=== PATIENT | female | born 1965 | race Caucasian/White ===

== ENCOUNTER 2017-08-17 13:25 | Emergency (ER) | payer MEDICAID, OTHER ==
[2017-08-17] MEDS ORDERED: Sodium Chloride 0.9% 1,000 ML IV STA (13:44)
[2017-08-17] MEDS ORDERED: Iohexol 240 (50 ml) PO ONE (13:45)
--- NOTE | 2017-08-17 14:10 | ED PDOC ---
HPI: Abdomen Time Seen by Provider: 08/17/17 13:37 Chief Complaint (Nursing): Abdominal Pain Chief Complaint (Provider): Abdominal Pain History Per: Patient History/Exam Limitations: no limitations Onset/Duration Of Symptoms: Days (x 1) Current Symptoms Are (Timing): Still Present Additional Complaint(s): Aster is a 51 y/o female with a history of hypertension who presents to the ED complaining of right sided abdominal pain with associated nausea, vomiting, and diarrhea that started last evening. Patient has had several nonbloody episodes of both vomiting and diarrhea. She describes the pain as sharp with no radiation. Now she also has associated dizziness. Patient denies fever, chest pain, shortness of breath, or prior history of similar pain. PMD: None Past Medical History Reviewed: Historical Data, Nursing Documentation, Vital Signs Vital Signs: Last Vital Signs Temp 98.6 F 08/17/17 19:34 Pulse 79 08/17/17 19:34 Resp 16 08/17/17 19:34 BP 113/70 08/17/17 19:34 Pulse Ox 96 08/17/17 19:34 - Medical History PMH: Asthma, HTN - Surgical History Surgical History: Other surgeries: tummy tuck, breast augmentation - Family History Family History: States: Unknown Family Hx - Immunization History Hx Tetanus Toxoid Vaccination: No Hx Influenza Vaccination: No Hx Pneumococcal Vaccination: No - Home Medications Home Medications: Ambulatory Orders Medication Instructions Recorded Losartan/Hydrochlorothiazide 1 tab PO DAILY 01/08/16 [Hyzaar 100-25 Tablet] Metoprolol Succinate [Toprol XL] 50 mg PO DAILY 01/08/16 Albuterol HFA [Ventolin HFA 90 2 puff IH [id number] PRN 06/03/17 mcg/actuation (8 g)] Famotidine [Pepcid] 20 mg PO DAILY #20 tab 06/03/17 Zolpidem [Ambien] 10 mg PO HS 06/27/17 Ibuprofen [Motrin Tab] 600 mg PO Q6 PRN #15 tab 08/17/17 Ranitidine HCl [Zantac] 150 mg PO BID #20 tablet 08/17/17 Ciprofloxacin HCl [Cipro] 500 mg PO BID 7 Days tab 08/20/17 Dicyclomine [Dicyclomine HCl] 10 mg PO DAILY PRN 5 Days cap 08/20/17 - Allergies Allergies/Adverse Reactions: Allergies Allergy/AdvReac Type Severity Reaction Status Date / Time latex AdvReac SWELLING Verified 08/17/17 13:30 Review of Systems ROS Statement: Except As Marked, All Systems Reviewed And Found Negative Constitutional: Negative for: Fever Cardiovascular: Negative for: Chest Pain Respiratory: Negative for: Shortness of Breath Gastrointestinal: Positive for: Nausea, Vomiting, Abdominal Pain (right sided), Diarrhea Neurological: Positive for: Dizziness Physical Exam - Reviewed Nursing Documentation Reviewed: Yes Vital Signs Reviewed: Yes - Physical Exam Appears: Positive for: Well, Non-toxic, No Acute Distress Skin: Positive for: Normal Color, Warm, Dry Eye Exam: Positive for: Normal appearance, EOMI, PERRL. Negative for: Scleral icterus Cardiovascular/Chest: Positive for: Regular Rate, Rhythm. Negative for: Murmur Respiratory: Positive for: Normal Breath Sounds. Negative for: Respiratory Distress Gastrointestinal/Abdominal: Positive for: Soft, Tenderness (right sided upper and lower). Negative for: Guarding, Rebound Extremity: Positive for: Normal ROM Neurologic/Psych: Positive for: Alert, Oriented. Negative for: Motor/Sensory Deficits - Laboratory Results Result Diagrams: 08/17/17 14:15 08/17/17 14:15 - ECG O2 Sat by Pulse Oximetry: 95 (RA) Pulse Ox Interpretation: Normal Medical Decision Making Medical Decision Making: Time: 13:43 Initial Impression: Right-sided abdominal pain Initial Plan: --US Abdomen --Blood Work --Toradol and Zofran for symptoms --If US negative, CT will be ordered Time: 16:26 US ABDOMEN FINDINGS: LIVER: Measures 18.1 cm. Diffuse increased echogenicity of the liver parenchyma. No mass. No intrahepatic bile duct dilatation. GALLBLADDER: Unremarkable. No gallstones. COMMON BILE DUCT: Measures 4 mm. No stones. No dilatation. PANCREAS: Not visualized RIGHT KIDNEY: Measures 11.6 x 5.5 x 4 point sickcm. Normal echogenicity. No calculus, mass, or hydronephrosis. LEFT KIDNEY: Measures 11.2 x 5.9 x 6.6cm. Normal echogenicity. No calculus, mass, or hydronephrosis. SPLEEN: Normal in size at 10.9 cm a. Normal contour. No mass. AORTA: Limited due to bowel gas. IVC: Limited due to bowel gas OTHER FINDINGS: None. IMPRESSION: Limited exam due to obscuring bowel gas as above. Mild hepatomegaly. Findings compatible with hepatic steatosis. No gallbladder pathology noted. Nonvisualized pancreas. Not visualized IVC and aorta. Labs and CT report reviewed w patient. Followup GI for eval of LFTs and workup Scribe Attestation: Documented by Darshan Nicholson, acting as a scribe for Dr. Nasir Grajeda DO. Provider Scribe Attestation: All medical record entries made by the Scribe were at my direction and personally dictated by me. I have reviewed the chart and agree that the record accurately reflects my personal performance of the history, physical exam, medical decision making, and the department course for this patient. I have also personally directed, reviewed, and agree with the discharge instructions and disposition. Disposition - Clinical Impression Clinical Impression: Abdominal pain, Abnormal liver function test - Patient ED Disposition Is Patient to be Admitted: No Counseled Patient/Family Regarding: Studies Performed, Diagnosis, Need For Followup - Disposition Referrals: Roberta Peacock MD [Medical Doctor] - Disposition: Routine/Home Disposition Time: 18:30 Condition: STABLE Additional Instructions: See utility worker production for evaluation of your liver enzymes. Hepatitis testing sent, will return in approx 2-3 days. Return to ER for any worse or new symptoms. Take medications as directed. Prescriptions: Ibuprofen [Motrin Tab] 600 mg PO Q6 PRN #15 tab PRN Reason: Pain, Moderate (4-7) Ranitidine HCl [Zantac] 150 mg PO BID #20 tablet Instructions: Acute Abdomen (Belly Pain) Forms: [employer] (Mongolian) Print Language: SLOVAK
[2017-08-17 14:22] LABS: BASO % 0.3 % (0.0-2.0); EOS # 0.1 K/uL (0.0-0.7); EOS % 1.2 % (0.0-4.0); LYMPH # 0.8 K/uL (1.0-4.3); LYMPH % 11.2 % (20.0-40.0); MEAN CELL VOLUME 82.5 fl (81.0-99.0); MEAN CORPUSCULAR HEMOGLOBIN 28.1 pg (27.0-31.0); MEAN CORPUSCULAR HGB CONC 34.1 g/dL (33.0-37.0); MEAN PLATELET VOLUME 8.8 fl (7.2-11.7); MONO # 0.3 K/uL (0.0-0.8); MONO % 3.3 % (0.0-10.0); NEUT # 6.3 K/uL (1.8-7.0); NRBC % 0.1 % (0.0-0.0); RBC 4.61 Mil/uL (3.80-5.20); RED CELL DISTRIBUTION WIDTH 12.3 % (11.5-14.5); WHITE BLOOD COUNT 7.5 K/uL (4.8-10.8)
[2017-08-17 14:29] LABS: PARTIAL THROMBOPLASTIN TIME 28.2 Seconds (25.6-37.1); PROTHROMBIN TIME 11.4 Seconds (9.8-13.1)
[2017-08-17] MEDS ORDERED: Iohexol 240 (50 ml) ONE (14:37)
[2017-08-17 16:20] LABS: ALBUMIN 4.1 g/dL (3.5-5.0); ALT/SGPT 179 U/L (9-52); AST/SGOT 179 U/L (14-36); BLOOD UREA NITROGEN 14 mg/dl (7-17); CALCIUM 9.3 mg/dL (8.4-10.2); GFR AFRICAN-AMERICAN > 60; GFR NON-AFRICAN AMERICAN > 60; LIPASE 50 U/L (23-300)
--- NOTE | 2017-08-17 16:28 | US ---
HISTORY: Right sided abd pain COMPARISON: None. TECHNIQUE: Sonographic evaluation of the abdomen. Patient was given CT contrast prior to the ultrasound exam - examination somewhat limited by this and bowel gas. FINDINGS: LIVER: Measures 18.1 cm. Diffuse increased echogenicity of the liver parenchyma. No mass. No intrahepatic bile duct dilatation. GALLBLADDER: Unremarkable. No gallstones. COMMON BILE DUCT: Measures 4 mm. No stones. No dilatation. PANCREAS: Not visualized RIGHT KIDNEY: Measures 11.6 x 5.5 x 4 point sickcm. Normal echogenicity. No calculus, mass, or hydronephrosis. LEFT KIDNEY: Measures 11.2 x 5.9 x 6.6cm. Normal echogenicity. No calculus, mass, or hydronephrosis. SPLEEN: Normal in size at 10.9 cm a. Normal contour. No mass. AORTA: Limited due to bowel gas. IVC: Limited due to bowel gas OTHER FINDINGS: None. IMPRESSION: Limited exam due to obscuring bowel gas as above. Mild hepatomegaly. Findings compatible with hepatic steatosis. No gallbladder pathology noted. Nonvisualized pancreas. Not visualized IVC and aorta.
[2017-08-17] MEDS ORDERED: Iohexol 300 100 ML IJ ONE (16:47)
[2017-08-17] MEDS ORDERED: Sodium Chloride 0.9% 100 ML ONE (16:47)
[2017-08-17] MEDS ORDERED: Morphine 4 MG/ML VIAL ONE (17:39)
--- NOTE | 2017-08-17 18:06 | CT ---
PROCEDURE: CT Abdomen and Pelvis with contrast HISTORY: R sided abd pain vomiting COMPARISON: None. TECHNIQUE: Contrast dose: 90 mL Omnipaque 300 Radiation dose: Total exam DLP = 897.28 mGy-cm. This CT exam was performed using one or more of the following dose reduction techniques: Automated exposure control, adjustment of the mA and/or kV according to patient size, and/or use of iterative reconstruction technique. FINDINGS: LOWER THORAX: Unremarkable. LIVER: Diffusely diminished attenuation consistent with fatty infiltration. There is geometric area of relative increased attenuation in the medial left hepatic lobe abutting the fissure for the ligamentum but no some, consistent with focal fatty sparing. There is also mild focal fatty sparing seen about the gallbladder fossa. Smooth contour. No other mass. No biliary ductal dilatation. Mild hepatomegaly. The liver measures approximately 20 cm craniocaudal. GALLBLADDER AND BILE DUCTS: Unremarkable. PANCREAS: Unremarkable. No gross lesion or ductal dilatation. SPLEEN: Minimal splenomegaly. The spleen measures 13.1 cm in greatest dimension. No mass peer ADRENALS: Unremarkable. No mass. KIDNEYS AND URETERS: Unremarkable. No hydronephrosis. No solid mass. VASCULATURE: Unremarkable. No aortic aneurysm. BOWEL: Unremarkable. No obstruction. No gross mural thickening. APPENDIX: Normal appendix. PERITONEUM: Unremarkable. No free fluid. No free air. LYMPH NODES: Unremarkable. No enlarged lymph nodes. BLADDER: Unremarkable. REPRODUCTIVE: Unremarkable uterus. Two right-sided cervical nabothian cysts. Additional minor findings as above. 1.9 cm left ovarian cyst. BONES: No acute fracture. OTHER FINDINGS: None. IMPRESSION: No acute abnormality. Mild hepatic splenomegaly. Fatty infiltration of the liver. Focal fatty sparing.
--- NOTE | 2017-08-17 19:19 | CARD ---
APPROVED REPORT EKG Measurement Heart [id number] <Conclusion> Normal sinus rhythm Nonspecific T wave abnormality Abnormal ECG
[2017-08-18 11:28] VITALS: BP 113/70; PULSE 79
[2017-08-18 11:38] VITALS: RESP 16; TEMP 98.6
[2017-08-18 12:40] LABS: HEPATITIS B SURFACE AG Negative (NEGATIVE)
[2017-08-18 12:46] LABS: HEPATITIS A IGM NEGATIVE (NEGATIVE); HEPATITIS B CORE AB NEGATIVE (NEGATIVE)
[2017-08-18 13:44] LABS: HEPATITIS C ANTIBODY NEGATIVE (NEGATIVE)
[2017-08-24 16:35] VITALS: O2SAT 95
== END 2017-08-17 19:40 | disposition home or self-care (01) ==
LOC: H.ER 13:25
DX: R79.89 Other specified abnormal findings of blood chemistry (principal); R10.9 Unspecified abdominal pain; I10 Essential (primary) hypertension; J45.909 Unspecified asthma, uncomplicated
CPT/HCPCS: 74177; 76700; 80053; 80074; 81025; 83690; 85025; 85610; 85730; 93005; 96374; 99284; J1885; J2270; J7040; Q9966; Q9967

== ENCOUNTER 2017-08-20 10:18 | Emergency (ER) | payer MEDICAID ==
[2017-08-20 10:25] VITALS: O2SAT 98
[2017-08-20] MEDS ORDERED: Sodium Chloride 0.9% 1,000 ML IV STA (10:50)
--- NOTE | 2017-08-20 11:22 | ED PDOC ---
HPI: Abdomen Time Seen by Provider: 08/20/17 10:39 Chief Complaint (Nursing): Abdominal Pain Chief Complaint (Provider): Abdominal Pain History Per: Patient History/Exam Limitations: no limitations Current Symptoms Are (Timing): Still Present Additional Complaint(s): 51 year old female presents to the emergency department with a complaint of an abdominal pain, vomiting (nonbloody), and diarrhea (nonbloody) since 08/17/2017. Reports that she was seen here on 08/17/2017 with the same symptoms , had unremarkable ultrasound and CAT Scan results, and prescribed Zantac without the relief of symptoms. States she still has diarrhea with two vomiting episodes yesterday. Associated with generalized weakness and lightheadedness. Patient is tolerating liquids. Denies chest pain, shortness of breath, headache , or leg pain. No chest pain, dyspnea, headaches, travel. Had steak and potatoes few hours before initial symptoms started. Past Medical History Reviewed: Historical Data, Nursing Documentation, Vital Signs Vital Signs: Last Vital Signs Temp 98.4 F 08/20/17 10:22 Pulse 92 H 08/20/17 10:22 Resp 18 08/20/17 10:22 BP 135/84 08/20/17 10:22 Pulse Ox 98 08/20/17 13:06 - Medical History PMH: Asthma, HTN - Surgical History Surgical History: - Family History Family History: States: Unknown Family Hx - Social History Current smoker - smoking cessation education provided: No Alcohol: None Drugs: Denies - Immunization History Hx Tetanus Toxoid Vaccination: No Hx Influenza Vaccination: No Hx Pneumococcal Vaccination: No - Home Medications Home Medications: Ambulatory Orders Medication Instructions Recorded Losartan/Hydrochlorothiazide 1 tab PO DAILY 01/08/16 [Hyzaar 100-25 Tablet] Metoprolol Succinate [Toprol XL] 50 mg PO DAILY 01/08/16 Albuterol HFA [Ventolin HFA 90 2 puff IH [id number] PRN 06/03/17 mcg/actuation (8 g)] Famotidine [Pepcid] 20 mg PO DAILY #20 tab 06/03/17 Zolpidem [Ambien] 10 mg PO HS 06/27/17 Ibuprofen [Motrin Tab] 600 mg PO Q6 PRN #15 tab 08/17/17 Ranitidine HCl [Zantac] 150 mg PO BID #20 tablet 08/17/17 Ciprofloxacin HCl [Cipro] 500 mg PO BID 7 Days tab 08/20/17 Dicyclomine [Dicyclomine HCl] 10 mg PO DAILY PRN 5 Days cap 08/20/17 - Allergies Allergies/Adverse Reactions: Allergies Allergy/AdvReac Type Severity Reaction Status Date / Time latex AdvReac SWELLING Verified 08/17/17 13:30 Review of Systems ROS Statement: Except As Marked, All Systems Reviewed And Found Negative Constitutional: Positive for: Weakness (lightheadedness). Negative for: Fever, Chills Cardiovascular: Negative for: Chest Pain Gastrointestinal: Positive for: Vomiting, Abdominal Pain, Diarrhea Musculoskeletal: Negative for: Leg Pain Neurological: Positive for: Weakness, Dizziness (light-headed). Negative for: Headache Physical Exam - Reviewed Nursing Documentation Reviewed: Yes Vital Signs Reviewed: Yes - Physical Exam Appears: Positive for: Non-toxic, No Acute Distress Head Exam: Positive for: NORMAL INSPECTION Skin: Positive for: Normal Color, Warm, Dry Eye Exam: Positive for: Normal appearance, EOMI, PERRL ENT: Positive for: Normal ENT Inspection Neck: Positive for: Normal, Painless ROM, Supple Cardiovascular/Chest: Positive for: Regular Rate, Rhythm. Negative for: Murmur Respiratory: Positive for: Normal Breath Sounds. Negative for: Accessory Muscle Use, Respiratory Distress Gastrointestinal/Abdominal: Positive for: Soft, Tenderness (Diffuse). Negative for: Normal Exam Back: Positive for: Normal Inspection. Negative for: L CVA Tenderness, R CVA Tenderness Extremity: Positive for: Normal ROM. Negative for: Tenderness, Pedal Edema Neurologic/Psych: Positive for: Alert, direct support staff member II-XII, Oriented (x3). Negative for : Motor/Sensory Deficits - Laboratory Results Result Diagrams: 08/20/17 11:05 08/20/17 11:05 Interpretation Of Abn Labs: 3.2 K; ast/alt elevated - ECG O2 Sat by Pulse Oximetry: 98 Pulse Ox Interpretation: Normal (RA) Medical Decision Making Medical Decision Making: Time: 1052 Initial Impression: Abdominal pain and diarrhea Initial Plan: --CMP --Lipase --Urine DIP --Urine Preg --CBC w/ diff --PTT & Prothrombin --Bentyl 10 mg PO --Pepcid 20 mg IVP --Toradol 15 mg IVP --Sodium Chloride 1L IV --Reevaluation --Patient was seen here on 08/17/2017 and had the following work up results: --Negative for HepA, HepB, and HepC. --US ABDOMEN FINDINGS: LIVER: Measures 18.1 cm. Diffuse increased echogenicity of the liver parenchyma. No mass. No intrahepatic bile duct dilatation. GALLBLADDER: Unremarkable. No gallstones. COMMON BILE DUCT: Measures 4 mm. No stones. No dilatation. PANCREAS: Not visualized RIGHT KIDNEY: Measures 11.6 x 5.5 x 4 point sickcm. Normal echogenicity. No calculus, mass, or hydronephrosis. LEFT KIDNEY: Measures 11.2 x 5.9 x 6.6cm. Normal echogenicity. No calculus, mass, or hydronephrosis. SPLEEN: Normal in size at 10.9 cm a. Normal contour. No mass. AORTA: Limited due to bowel gas. IVC: Limited due to bowel gas OTHER FINDINGS: None. IMPRESSION: Limited exam due to obscuring bowel gas as above. Mild hepatomegaly. Findings compatible with hepatic steatosis. No gallbladder pathology noted. Nonvisualized pancreas. Not visualized IVC and aorta. --CT Scan FINDINGS: LOWER THORAX: Unremarkable. LIVER: Diffusely diminished attenuation consistent with fatty infiltration. There is geometric area of relative increased attenuation in the medial left hepatic lobe abutting the fissure for the ligamentum but no some, consistent with focal fatty sparing. There is also mild focal fatty sparing seen about the gallbladder fossa. Smooth contour. No other mass. No biliary ductal dilatation. Mild hepatomegaly. The liver measures approximately 20 cm craniocaudal. GALLBLADDER AND BILE DUCTS: Unremarkable. PANCREAS: Unremarkable. No gross lesion or ductal dilatation. SPLEEN: Minimal splenomegaly. The spleen measures 13.1 cm in greatest dimension. No mass peer ADRENALS: Unremarkable. No mass. KIDNEYS AND URETERS: Unremarkable. No hydronephrosis. No solid mass. VASCULATURE: Unremarkable. No aortic aneurysm. BOWEL: Unremarkable. No obstruction. No gross mural thickening. APPENDIX: Normal appendix. PERITONEUM: Unremarkable. No free fluid. No free air. LYMPH NODES: Unremarkable. No enlarged lymph nodes. BLADDER: Unremarkable. REPRODUCTIVE: Unremarkable uterus. Two right-sided cervical nabothian cysts. Additional minor findings as above. 1.9 cm left ovarian cyst. BONES: No acute fracture. OTHER FINDINGS: None. IMPRESSION: No acute abnormality. Mild hepatic splenomegaly. Fatty infiltration of the liver. Focal fatty sparing. --Patient was diagnosed with abnormal liver function test and abdominal pain. Given Rx for Motrin 600 mg and Zantac 150 mg. Scribe Attestation: Documented by Marilin Brito, acting as a scribe for Ruben Marti MD. Provider Scribe Attestation: All medical record entries made by the Scribe were at my direction and personally dictated by me. I have reviewed the chart and agree that the record accurately reflects my personal performance of the history, physical exam, medical decision making, and the department course for this patient. I have also personally directed, reviewed, and agree with the discharge instructions and disposition. 1331: Stable. AAOx3. Pain free. Tolerated PO. Will rx cipro for possible infection. Pt. aware of elevated liver enzymes similar to last visit. Fu gi and pcp. Disposition - Clinical Impression Clinical Impression: Abdominal pain, Diarrhea, Elevated liver enzymes - Patient ED Disposition Is Patient to be Admitted: No Counseled Patient/Family Regarding: Studies Performed, Diagnosis, Need For Followup, Rx Given - Disposition Referrals: [facility] [Outside] - 08/22/17 Roberta Peacock MD [Medical Doctor] - 08/22/17 Disposition: Routine/Home Disposition Time: 13:33 Condition: STABLE Additional Instructions: You have elevated liver enzymes. Follow up with the volumetric weigher. Return if not better in 3 days. Prescriptions: Ciprofloxacin HCl [Cipro] 500 mg PO BID 7 Days tab Dicyclomine [Dicyclomine HCl] 10 mg PO DAILY PRN 5 Days cap PRN Reason: Diarrhea Instructions: Diarrhea in Adolescents and Adults, Acute Abdomen (Belly Pain) Forms: [employer] (Azeri)
[2017-08-20 11:24] LABS: BASO % 0.4 % (0.0-2.0); EOS # 0.1 K/uL (0.0-0.7); EOS % 2.1 % (0.0-4.0); HEMOGLOBIN 12.5 g/dL (12.0-16.0); LYMPH # 1.5 K/uL (1.0-4.3); LYMPH % 23.3 % (20.0-40.0); MEAN CELL VOLUME 82.9 fl (81.0-99.0); MEAN CORPUSCULAR HEMOGLOBIN 28.1 pg (27.0-31.0); MEAN CORPUSCULAR HGB CONC 33.9 g/dL (33.0-37.0); MEAN PLATELET VOLUME 8.6 fl (7.2-11.7); MONO # 0.4 K/uL (0.0-0.8); MONO % 5.6 % (0.0-10.0); NEUT # 4.3 K/uL (1.8-7.0); NEUT % 68.6 % (50.0-75.0); NRBC % 0.2 % (0.0-0.0); RBC 4.47 Mil/uL (3.80-5.20); RED CELL DISTRIBUTION WIDTH 12.4 % (11.5-14.5); WHITE BLOOD COUNT 6.3 K/uL (4.8-10.8)
[2017-08-20 11:27] LABS: PARTIAL THROMBOPLASTIN TIME 29.5 Seconds (25.6-37.1); PROTHROMBIN TIME 11.5 Seconds (9.8-13.1)
[2017-08-20 11:41] LABS: ALB/GLOB RATIO 1.2 (1.0-2.1); ALBUMIN 4.1 g/dL (3.5-5.0); BLOOD UREA NITROGEN 9 mg/dl (7-17); LIPASE 58 U/L (23-300)
[2017-08-20 13:09] LABS: ALT/SGPT 228 U/L (9-52); AST/SGOT 234 U/L (14-36); CALCIUM 9.3 mg/dL (8.4-10.2); GFR AFRICAN-AMERICAN > 60; GFR NON-AFRICAN AMERICAN > 60
[2017-08-20 13:54] VITALS: BP 132/74; PULSE 84; RESP 17; TEMP 98
== END 2017-08-20 13:55 | disposition home or self-care (01) ==
LOC: H.ER 10:18
DX: R10.9 Unspecified abdominal pain (principal); R19.7 Diarrhea, unspecified; R74.8 Abnormal levels of other serum enzymes; I10 Essential (primary) hypertension; J45.909 Unspecified asthma, uncomplicated
CPT/HCPCS: 80053; 81025; 83690; 85025; 85610; 85730; 96361; 96374; 96375; 99284; J1885; J7040

== ENCOUNTER 2017-10-21 16:55 | Observation (INO) | payer OTHER, MEDICAID ==
[2017-10-21] MEDS ORDERED: Sodium Chloride 0.9% 1,000 ML IV STA (17:46)
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
[2017-10-21 18:44] LABS: BASO # 0.1 K/uL (0.0-0.2); BASO % 0.8 % (0.0-2.0); EOS # 0.2 K/uL (0.0-0.7); EOS % 2.6 % (0.0-4.0); HEMOGLOBIN 13.4 g/dL (12.0-16.0); LYMPH # 2.3 K/uL (1.0-4.3); LYMPH % 26.8 % (20.0-40.0); MEAN CELL VOLUME 83.2 fl (81.0-99.0); MEAN CORPUSCULAR HEMOGLOBIN 28.1 pg (27.0-31.0); MEAN CORPUSCULAR HGB CONC 33.8 g/dL (33.0-37.0); MEAN PLATELET VOLUME 8.3 fl (7.2-11.7); MONO # 0.4 K/uL (0.0-0.8); NEUT # 5.5 K/uL (1.8-7.0); NEUT % 64.8 % (50.0-75.0); NRBC % 0.1 % (0.0-0.0); RBC 4.75 Mil/uL (3.80-5.20); RED CELL DISTRIBUTION WIDTH 12.3 % (11.5-14.5); WHITE BLOOD COUNT 8.5 K/uL (4.8-10.8)
[2017-10-21 18:54] LABS: ALB/GLOB RATIO 1.1 (1.0-2.1); ALBUMIN 4.2 g/dL (3.5-5.0); ALT/SGPT 105 U/L (9-52); AST/SGOT 69 U/L (14-36); BLOOD UREA NITROGEN 15 mg/dl (7-17); CALCIUM 9.5 mg/dL (8.4-10.2); GFR AFRICAN-AMERICAN > 60; GFR NON-AFRICAN AMERICAN > 60
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
[2017-10-21] MEDS ORDERED: Albuterol HFA 90 mcg/actuation (8 g) IH PRN (23:26)
[2017-10-22 00:27] VITALS: RESP 18
[2017-10-22] MEDS: Pneumococcal 23-Valent Vaccine IM ONE ×2 (06:49→06:54)
[2017-10-22] MEDS ORDERED: Metoprolol Succinate 50 mg XL Tab PO SCH (09:00)
[2017-10-22] MEDS ORDERED: RANITIDINE HCL 150 MG PO SCH (09:00)
[2017-10-22] MEDS ORDERED: Pantoprazole 40 mg EC Tab PO SCH (09:00)
[2017-10-22 12:34] VITALS: O2SAT 97
[2017-10-22 16:29] VITALS: BP 141/90; PULSE 73; TEMP 97.9
--- NOTE | 2017-10-22 16:43 | CARD ---
APPROVED REPORT EKG Measurement Heart [id number] <Conclusion> Normal sinus rhythm Poor R wave progression in the chest leads Abnormal ECG
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
== END 2017-10-22 18:30 | disposition home or self-care (01) ==
LOC: H.ER 16:55 → H.ERHOLD 19:12 → H.TEL 22:01
PROVIDERS: ADMIT Family Medicine; ATTEND Family Medicine
DX: M54.2 Cervicalgia (principal); V89.2XXA Person injured in unspecified motor-vehicle accident, traffic, initial encounter; Y92.410 Unspecified street and highway as the place of occurrence of the external cause; I10 Essential (primary) hypertension; J45.909 Unspecified asthma, uncomplicated; R07.9 Chest pain, unspecified; R42 Dizziness and giddiness; Z23 Encounter for immunization
CPT/HCPCS: 36415; 70450; 71046; 72125; 80053; 82550; 84484; 85025; 90732; 93005; 96374; 99285; G0009; G0378; J1885; J7030

== ENCOUNTER 2018-06-12 13:08 | Emergency (ER) | payer MEDICAID, OTHER ==
[2018-06-12 13:21] VITALS: BP 149/95; PULSE 75; RESP 18; TEMP 98.2; O2SAT 96
[2018-06-12] MEDS ORDERED: Oxycodone/Acetaminophen 5/325 mg Tab PO ONE (13:49)
--- NOTE | 2018-06-12 13:52 | ED PDOC ---
HPI: Female Pain Additional History Per: Patient Additional Complaint(s): This is 52 y/o F with PMH of chronic lower back pain with R sciatica comes to the ED c/o dysuria and chronic lower back pain. Patient reports 3 days hx of dysuria, no frq or discharge. Patient reports she has 15 years hx of chronic back pain and she ran out of medication/Percocet 5 days ago. Back pain is 8/10, radiated to right leg, sharp in nature, took tramadol from a friend this morning. Denies any fever, chest pain, SOB, abdominal pain or weakness, numbness/tingling. PMH: chronic lower back pain with R sciatica , HTN , pre-DM, Asthma PSH: Allg: Latex FH: no significant medical hx SH: Denies alcohol, smoking or drug use ROS: As per HPI <Luigi Hinkle - Last Filed: 06/12/18 14:25> <Jaime Tracy - Last Filed: 06/12/18 14:32> Time Seen by Provider: 06/12/18 13:28 Chief Complaint (Nursing): Female Genitourinary Supervising Attending Note - Supervising Attending Note The Documented history was done by the: Physician Slab Conditioner Supervisor, Attending Physician The documented physical exam was done by the: Physician Slab Conditioner Supervisor, Attending Physician The documented procedures were done by the: Physician Slab Conditioner Supervisor, Attending Physician - Attestation: I have personally seen and examined this patient.: Yes I have fully participated in the care of the patient.: Yes I have reviewed all pertinent clinical information, including history, physical exam and plan: Yes <Jaime Tracy - Last Filed: 06/12/18 14:32> Past Medical History Vital Signs: Last Vital Signs Temp 98.2 F 06/12/18 13:20 Pulse 75 06/12/18 13:20 Resp 18 06/12/18 13:20 BP 149/95 H 06/12/18 13:20 Pulse Ox 96 06/12/18 13:20 - Medical History PMH: Asthma, HTN Denies: Chronic Kidney Disease - Surgical History Surgical History: - Family History Family History: States: Unknown Family Hx - Immunization History Hx Tetanus Toxoid Vaccination: No Hx Influenza Vaccination: No Hx Pneumococcal Vaccination: No <Luigi Hinkle - Last Filed: 06/12/18 14:25> Reviewed: Historical Data, Nursing Documentation, Vital Signs Vital Signs: Last Vital Signs Temp 98.2 F 06/12/18 13:20 Pulse 75 06/12/18 13:20 Resp 18 06/12/18 13:20 BP 149/95 H 06/12/18 13:20 Pulse Ox 96 06/12/18 14:25 <Jaime Tracy - Last Filed: 06/12/18 14:32> - Home Medications Home Medications: Ambulatory Orders Medication Instructions Recorded RX: Losartan/Hydrochlorothiazide 1 tab PO DAILY 01/08/16 [Hyzaar 100-25 Tablet] RX: Metoprolol Succinate XL 50 mg PO DAILY 01/08/16 [Toprol XL] RX: Albuterol HFA [Ventolin HFA 90 2 puff IH [id number] PRN 06/03/17 mcg/actuation (8 g)] RX: Famotidine [Pepcid] 20 mg PO DAILY #20 tab 06/03/17 RX: Zolpidem [Ambien] 10 mg PO HS 06/27/17 RX: Ibuprofen [Motrin Tab] 600 mg PO Q6 PRN #15 tab 08/17/17 RX: Ranitidine HCl [Zantac] 150 mg PO BID #20 tablet 08/17/17 RX: Ciprofloxacin HCl [Cipro] 500 mg PO BID 7 Days tab 08/20/17 RX: Dicyclomine [Bentyl] 10 mg PO DAILY PRN 5 Days cap 08/20/17 Naproxen [Naprosyn] 500 mg PO Q12 PRN 30 Days tablet 06/12/18 Nitrofurantoin Macrocrystals 100 mg PO Q12 7 Days cap 06/12/18 [Macrobid] - Allergies Allergies/Adverse Reactions: Allergies Allergy/AdvReac Type Severity Reaction Status Date / Time latex AdvReac SWELLING Verified 10/21/17 21:22 Review of Systems Constitutional: Negative for: Fever Eyes: Negative for: Pain ENT: Negative for: Ear Pain Cardiovascular: Negative for: Chest Pain, Palpitations Respiratory: Negative for: Cough, Shortness of Breath, Hemoptysis Gastrointestinal: Negative for: Nausea, Vomiting, Abdominal Pain Genitourinary Female: Positive for: Dysuria Musculoskeletal: Positive for: Back Pain. Negative for: Neck Pain Skin: Negative for: Rash Neurological: Negative for: Weakness, Numbness <Luigi Hinkle - Last Filed: 06/12/18 14:25> ROS Statement: Except As Marked, All Systems Reviewed And Found Negative <Jaime Tracy - Last Filed: 06/12/18 14:32> Physical Exam - Physical Exam Appears: Positive for: No Acute Distress Head Exam: Positive for: NORMAL INSPECTION Skin: Positive for: Normal Color Eye Exam: Positive for: Normal appearance ENT: Positive for: Normal ENT Inspection Neck: Positive for: Normal Cardiovascular/Chest: Positive for: Regular Rate, Rhythm. Negative for: JVD, Murmur Respiratory: Positive for: Normal Breath Sounds. Negative for: Decreased Breath Sounds, Accessory Muscle Use, Wheezing Gastrointestinal/Abdominal: Positive for: Normal Exam, Bowel Sounds (+), Soft. Negative for: Tenderness, Distended, Guarding Back: Positive for: Other (Right back mild tenderness ). Negative for: L CVA Tenderness, R CVA Tenderness Extremity: Positive for: Other (right straight leg test + above 30dg ) DTR - Knee (R): 2+ DTR - Knee (L): 2+ Neurologic/Psych: Positive for: Alert, Oriented <Luigi Hinkle - Last Filed: 06/12/18 14:25> - Reviewed Nursing Documentation Reviewed: Yes Vital Signs Reviewed: Yes <Jaime Tracy - Last Filed: 06/12/18 14:32> - Laboratory Results Urine dip results: Positive for: Leukocyte Esterase - ECG O2 Sat by Pulse Oximetry: 96 - Progress ED Course And Treament: A/P: 52 y/o F with PMH of chronic lower back pain with R sciatica comes to the ED c/o dysuria and chronic lower back pain. - U dip - Pain management: Toradol - Reevaluation ---- Case discussed with Dr. Demarcus Hummeldip Positive of Leuk: Mod Reexamination: improved after medication - Agrees with discharge plan Re-evaluation Time: 14:09 Condition: Improving,but remains with symptoms <Luigi Hinkle - Last Filed: 06/12/18 14:25> Medical Decision Making Medical Decision Making: UTI, Chronic back pain <Luigi Hinkle - Last Filed: 06/12/18 14:25> Disposition - Patient ED Disposition Is Patient to be Admitted: No - Disposition Disposition: Routine/Home Disposition Time: 14:14 <Luigi Hinkle - Last Filed: 06/12/18 14:25> Doctor Will See Patient In The: Office Counseled Patient/Family Regarding: Studies Performed, Diagnosis, Need For Followup <Jaime Tracy - Last Filed: 06/12/18 14:32> - Clinical Impression Clinical Impression: UTI (urinary tract infection), Sciatica, Chronic back pain - Disposition Referrals: Aki Garcia MD [Medical Doctor] - Condition: GOOD Additional Instructions: DHARA HE, thank you for letting us take care of you today. Your provider was Jaime Tracy MD and you were treated for RT LEG PAIN, VAGINAL DISCOMFORT. The emergency medical care you received today was directed at your acute symptoms. If you were prescribed any medication, please fill it and take as directed. It may take several days for your symptoms to resolve. Return to the Emergency Department if your symptoms worsen, do not improve, or if you have any other problems. Please contact your doctor or call one of the physicians/clinics you have been referred to that are listed on the Patient Visit Information form that is included in your discharge packet. Bring any paperwork you were given at discharge with you along with any medications you are taking to your follow up visit. Our treatment cannot replace ongoing medical care by a primary care provider outside of the emergency department. Thank you for allowing the [facility] team to be part of your care today. If you had an X-Ray or CT scan: A Radiologist will review the ED reading if any change in treatment is needed we will contact you. If you had a blood, urine, or wound culture: It will take several days for the r esults, if any change in treatment is needed we will contact you. If you had an STI test: It will take 48 hours for the results. Please call after 1 week if you have not heard back. Prescriptions: Naproxen [Naprosyn] 500 mg PO Q12 PRN 30 Days tablet PRN Reason: Pain, Moderate (4-7) Nitrofurantoin Macrocrystals [Macrobid] 100 mg PO Q12 7 Days cap Instructions: Urinary Tract Infections in Adults, Sciatica Print Language: SCOTTISH
[2018-06-12] MEDS ORDERED: Oxycodone/Acetaminophen 5/325 mg Tab ONE (13:54)
== END 2018-06-12 14:29 | disposition home or self-care (01) ==
LOC: H.ER 13:08
DX: N39.0 Urinary tract infection, site not specified (principal); M54.31 Sciatica, right side
CPT/HCPCS: 81025; 87086; 96372; 99283; J1885

== ENCOUNTER 2018-09-08 09:52 | Emergency (ER) | payer MEDICAID ==
[2018-09-08 09:58] VITALS: BMI 31.4
--- NOTE | 2018-09-08 10:06 | ED PDOC ---
HPI: Back Time Seen by Provider: 09/08/18 09:59 History Per: Patient Onset/Duration Of Symptoms: Days (2) Current Symptoms Are (Timing): Still Present Quality Of Discomfort: Aching Severity: Moderate Previous Symptoms: Back Pain Associated Symptoms: None Exacerbating Factor(s): Movement Additional Complaint(s): Right sided low back pain radiating to right buttock and leg x 2 days. No precipitating event. No weakness or parasthesias. no urinary sxs. Past Medical History Vital Signs: Last Vital Signs Temp 98.9 F 09/08/18 09:58 Pulse 71 09/08/18 09:58 Resp 18 09/08/18 09:58 BP 122/76 09/08/18 09:58 Pulse Ox 99 09/08/18 09:58 - Medical History PMH: Asthma, Back Problems (Herniated lumbar disc), HTN Denies: Chronic Kidney Disease - Surgical History Surgical History: - Family History Family History: States: Unknown Family Hx - Immunization History Hx Tetanus Toxoid Vaccination: No Hx Influenza Vaccination: No Hx Pneumococcal Vaccination: No - Home Medications Home Medications: Ambulatory Orders Medication Instructions Recorded Losartan/Hydrochlorothiazide 1 tab PO DAILY 01/08/16 [Hyzaar 100-25 Tablet] Metoprolol Succinate XL [Toprol XL] 50 mg PO DAILY 01/08/16 Albuterol HFA [Ventolin HFA 90 2 puff IH [id number] PRN 06/03/17 mcg/actuation (8 g)] Famotidine [Pepcid] 20 mg PO DAILY #20 tab 06/03/17 Zolpidem [Ambien] 10 mg PO HS 06/27/17 Ibuprofen [Motrin Tab] 600 mg PO Q6 PRN #15 tab 08/17/17 Ranitidine HCl [Zantac] 150 mg PO BID #20 tablet 08/17/17 Ciprofloxacin HCl [Cipro] 500 mg PO BID 7 Days tab 08/20/17 Dicyclomine [Bentyl] 10 mg PO DAILY PRN 5 Days cap 08/20/17 Naproxen [Naprosyn] 500 mg PO Q12 PRN 30 Days tablet 06/12/18 Nitrofurantoin Macrocrystals 100 mg PO Q12 7 Days cap 06/12/18 [Macrobid] Cyclobenzaprine [Cyclobenzaprine 10 mg PO TID #12 tab 04/19/19 HCl] Lidocaine 5% [Lidoderm] 1 ea TD DAILY #10 patch 09/08/18 Methylprednisolone [Medrol Dose 4 mg PO DAILY #21 tab 09/08/18 Pack (21 tabs)] - Allergies Allergies/Adverse Reactions: Allergies Allergy/AdvReac Type Severity Reaction Status Date / Time latex AdvReac SWELLING Verified 09/08/18 10:04 Review of Systems Constitutional: Negative for: Fever Genitourinary Female: Negative for: Dysuria, Frequency, Incontinence Musculoskeletal: Positive for: Back Pain Neurological: Negative for: Weakness, Numbness Physical Exam - Reviewed Nursing Documentation Reviewed: Yes Vital Signs Reviewed: Yes - Physical Exam Appears: Positive for: Non-toxic, No Acute Distress Head Exam: Positive for: ATRAUMATIC, NORMAL INSPECTION, NORMOCEPHALIC Skin: Positive for: Normal Color, Warm, DRY Eye Exam: Positive for: Normal appearance, EOMI Neck: Positive for: Normal, Painless ROM Back: Positive for: Normal Inspection, Muscle Spasm (Tenderness right paralumbar area). Negative for: Vertebral Tenderness Extremity: Positive for: Normal ROM Neurological/Psych: Positive for: Awake, Alert, Normal Tone. Negative for: Motor/Sensory Deficits - ECG O2 Sat by Pulse Oximetry: 99 - Progress Re-evaluation Time: 12:11 Condition: Improved (Mild improvement) Disposition - Clinical Impression Clinical Impression: Chronic low back pain - Patient ED Disposition Is Patient to be Admitted: No Counseled Patient/Family Regarding: Diagnosis, Need For Followup, Rx Given - Disposition Referrals: [facility] [Outside] Disposition: Routine/Home Disposition Time: 12:12 Condition: FAIR Prescriptions: Cyclobenzaprine [Cyclobenzaprine HCl] 10 mg PO TID #12 tab Lidocaine 5% [Lidoderm] 1 ea TD DAILY #10 patch Methylprednisolone [Medrol Dose Pack (21 tabs)] 4 mg PO DAILY #21 tab Instructions: Low Back Pain in Adults
[2018-09-08] MEDS ORDERED: Lidocaine 5% Patch TD STA (10:07)
[2018-09-08] MEDS ORDERED: Lidocaine 5% Patch TD ONE (10:19)
[2018-09-08 12:35] VITALS: BP 130/81; PULSE 68; RESP 15; TEMP 98.4; O2SAT 100
== END 2018-09-08 12:30 | disposition home or self-care (01) ==
LOC: H.ER 09:52
DX: M54.5 Low back pain (principal); G89.29 Other chronic pain; I10 Essential (primary) hypertension; J45.909 Unspecified asthma, uncomplicated
CPT/HCPCS: 96372; 99283; J1885

== ENCOUNTER 2018-09-13 09:15 | Emergency (ER) | payer MEDICAID ==
[2018-09-13 09:22] VITALS: BMI 30.5
[2018-09-13 09:23] VITALS: O2SAT 99
--- NOTE | 2018-09-13 10:11 | ED PDOC ---
Lower Extremity Pain/Injury Time Seen by Provider: 09/13/18 09:48 Chief Complaint (Nursing): Lower Extremity Problem/Injury Chief Complaint (Provider): Lower Extremity Problem/Injury History Per: Patient History/Exam Limitations: no limitations Onset/Duration Of Symptoms: Days Current Symptoms Are (Timing): Still Present Additional Complaint(s): 52 year old female with a past medical history of hypertension, asthma, and back pain who is presenting to the ED for evaluation of right posterior thigh and right lower extremity pain ongoing for 5 days. Patient states that she was seen here 5 days ago for the same complaints with pain starting in the lower back and radiating down right leg. She states that he was diagnosed with radiculopathy but admits that pain persists despite taking steroids and flexeril. Patient denies any chest pain or shortness of breath and offers no other medical complaints at this time. PMD: Joseph Bernal Past Medical History Reviewed: Historical Data, Nursing Documentation, Vital Signs Vital Signs: Last Vital Signs Temp 99.0 F 09/13/18 09:22 Pulse 70 09/13/18 09:22 Resp 18 09/13/18 09:22 BP 138/83 09/13/18 09:22 Pulse Ox 99 09/13/18 09:22 - Medical History PMH: Asthma, Back Problems (Herniated lumbar disc), HTN Denies: Chronic Kidney Disease - Surgical History Surgical History: - Family History Family History: States: Unknown Family Hx - Social History Current smoker - smoking cessation education provided: No Alcohol: None Drugs: Denies - Immunization History Hx Tetanus Toxoid Vaccination: No Hx Influenza Vaccination: No Hx Pneumococcal Vaccination: No - Home Medications Home Medications: Ambulatory Orders Medication Instructions Recorded Metoprolol Succinate XL [Toprol XL] 50 mg PO DAILY 01/08/16 Albuterol HFA [Ventolin HFA 90 2 puff IH Q6 PRN 06/03/17 mcg/actuation (8 g)] Zolpidem [Ambien] 10 mg PO HS 06/27/17 Cyclobenzaprine [Cyclobenzaprine 10 mg PO TID #12 tab 09/08/18 HCl] Methylprednisolone [Medrol Dose 4 mg PO DAILY #21 tab 09/08/18 Pack (21 tabs)] Acetaminophen with Codeine 1 tab PO Q8H #10 tab 09/13/18 [Tylenol with Codeine No. 3 300 mg-30 mg] Lidocaine [Lidocaine Pain Relief] 1 patch TD DAILY 09/13/18 Losartan/Hydrochlorothiazide 1 tab PO DAILY 09/13/18 [Hyzaar 100-12.5 Tablet] Montelukast [Singulair] 10 mg PO DAILY 09/13/18 metFORMIN [glucOPHAGE] 500 mg PO BID PRN 09/13/18 - Allergies Allergies/Adverse Reactions: Allergies Allergy/AdvReac Type Severity Reaction Status Date / Time latex AdvReac SWELLING Verified 09/08/18 10:04 Review of Systems ROS Statement: Except As Marked, All Systems Reviewed And Found Negative Cardiovascular: Negative for: Chest Pain Respiratory: Negative for: Shortness of Breath Musculoskeletal: Positive for: Back Pain, Leg Pain Physical Exam - Reviewed Nursing Documentation Reviewed: Yes Vital Signs Reviewed: Yes - Physical Exam Appears: Positive for: Non-toxic, No Acute Distress Head Exam: Positive for: ATRAUMATIC, NORMAL INSPECTION, NORMOCEPHALIC Skin: Positive for: Normal Color, Warm, DRY Eye Exam: Positive for: EOMI, Normal appearance, PERRL Neck: Positive for: Normal, Painless ROM, Supple Cardiovascular/Chest: Positive for: Regular Rate, Rhythm. Negative for: Murmur Respiratory: Positive for: Normal Breath Sounds. Negative for: Respiratory Distress Gastrointestinal/Abdominal: Positive for: Normal Exam, Soft. Negative for: Tenderness Back: Positive for: Other (right para-sacral tenderness, no midline spinal tenderness). Negative for: L CVA Tenderness, R CVA Tenderness, Vertebral Tenderness Extremity: Positive for: Normal ROM, Other (tenderness to right posterior thigh ). Negative for: Deformity, Swelling Neurological/Psych: Positive for: Awake, Alert, Normal Tone, Oriented. Negative for: Motor/Sensory Deficits - Laboratory Results Result Diagrams: 09/13/18 10:02 09/13/18 10:02 - ECG O2 Sat by Pulse Oximetry: 99 (RA) Pulse Ox Interpretation: Normal Medical Decision Making Medical Decision Making: Time: 9:55 Plan: --WIll obtain CT Lumbar Spine to r/o Disc Disease --CMP --CBC --D Dimer --Will Obtain Venous Ultrasound studies of right lower extremity to r/o DVT No evidence of DVT on Doppler studies. CT LS spine reveals herniation L3-L4 and disc bulging L4-5. Pain appears to be radicular with no neuro deficit. Discussed with PMD dr. Bernal. Will refer to ortho for eval and possible epidural injections. Has not responded to NSAIDs, Medrol dose pack, Flexeril or tramadol or lidoderm patch. Pt counseled regarding opioids and possible addiction but will Rx 3 day supply Tylenol with Codeine until pt can be seen by ortho. [facility] reviewed with no recent Rx fpor opiods. Scribe Attestation: Documented by Pooja Rubio, acting as a scribe for Omar Kinsey MD. Provider Scribe Attestation: All medical record entries made by the Scribe were at my direction and personally dictated by me. I have reviewed the chart and agree that the record accurately reflects my personal performance of the history, physical exam, medi raquel decision making, and the department course for this patient. I have also personally directed, reviewed, and agree with the discharge instructions and disposition. Disposition - Clinical Impression Clinical Impression: Chronic back pain, Lumbar radiculopathy - Patient ED Disposition Is Patient to be Admitted: No Counseled Patient/Family Regarding: Studies Performed, Diagnosis, Need For Followup, Rx Given - Disposition Referrals: Joseph Bernal MD [Staff Provider] - Disposition: Routine/Home Disposition Time: 12:42 Condition: FAIR Prescriptions: Acetaminophen with Codeine [Tylenol with Codeine No. 3 300 mg-30 mg] 1 tab PO Q8H #10 tab Instructions: Low Back Pain in Adults, Radiculopathy (DC) Forms: [place] (Maori)
[2018-09-13 10:14] LABS: BASO % 0.4 % (0.0-2.0); EOS # 0.2 K/uL (0.0-0.7); EOS % 2.6 % (0.0-4.0); HEMOGLOBIN 13.5 g/dL (12.0-16.0); LYMPH # 2.4 K/uL (1.0-4.3); LYMPH % 37.4 % (20.0-40.0); MEAN CELL VOLUME 83.5 fl (81.0-99.0); MEAN CORPUSCULAR HEMOGLOBIN 27.8 pg (27.0-31.0); MEAN CORPUSCULAR HGB CONC 33.3 g/dL (33.0-37.0); MONO # 0.4 K/uL (0.0-0.8); MONO % 5.9 % (0.0-10.0); NEUT # 3.5 K/uL (1.8-7.0); NEUT % 53.7 % (50.0-75.0); NRBC % 0.1 % (0.0-0.0); RBC 4.84 Mil/uL (3.80-5.20); WHITE BLOOD COUNT 6.5 K/uL (4.8-10.8)
[2018-09-13 10:27] LABS: ALB/GLOB RATIO 1.3 (1.0-2.1); ALBUMIN 4.1 g/dL (3.5-5.0); ALT/SGPT 43 U/L (9-52); AST/SGOT 34 U/L (14-36); BLOOD UREA NITROGEN 14 mg/dl (7-17); CALCIUM 8.9 mg/dL (8.4-10.2); GFR NON-AFRICAN AMERICAN > 60
--- NOTE | 2018-09-13 12:16 | US ---
Date of service: 09/13/2018 PROCEDURE: Right lower extremity venous duplex Doppler. HISTORY: Right thigh and right calf pain 1 week duration. COMPARISON: None available. TECHNIQUE: Common femoral, superficial femoral, popliteal and posterior tibial veins were evaluated. Flow was assessed with color Doppler, compressibility, assessment of phasic flow and augmentation response. FINDINGS: COMMON FEMORAL VEIN: Unremarkable. SUPERFICIAL FEMORAL VEIN: Unremarkable. POPLITEAL VEIN: Unremarkable. POSTERIOR TIBIAL VEIN: Unremarkable. OTHER FINDINGS: None. IMPRESSION: No evidence of deep venous thrombosis in the right lower extremity.
--- NOTE | 2018-09-13 12:31 | CT ---
Date of service: 09/13/2018 PROCEDURE: CT Lumbar Spine without contrast HISTORY: Low back pain with radiculopathy COMPARISON: None available. TECHNIQUE: Axial computed tomography images were obtained of the lumbar spine without the use of intravenous contrast. Coronal and sagittal reformatted images were created and reviewed. Radiation dose: Total exam DLP = 946.63 mGy-cm. This CT exam was performed using one or more of the following dose reduction techniques: Automated exposure control, adjustment of the mA and/or kV according to patient size, and/or use of iterative reconstruction technique. FINDINGS: VERTEBRAE: Unremarkable. No fracture. Normal alignment. DISCS/SPINAL CANAL/NEURAL FORAMINA: L1-2: Unremarkable. L2-3: Unremarkable. L3-4: Partially calcified disc material extending to the right of the midline impressing upon both traversing and exiting nerve roots. L4-5: Partially calcified bulging annulus. Calcified component is to the left of the midline. Disc degeneration, vacuum disc phenomenon at this level. L5-S1: Mild annular bulge L5-S1 without focal abnormality. PARASPINAL SOFT TISSUES: Unremarkable. OTHER FINDINGS: None. IMPRESSION: 1. Eccentric bulging annulus/disc herniation L3-4 to the right of the midline. 2. Generalized bulging annulus partially calcified L4-5. 3. Mild annular bulge L5-S1.
[2018-09-13] MEDS ORDERED: Acetaminophen-Codeine 300/30 mg Tab PO STA (12:58)
[2018-09-13 14:52] VITALS: BP 129/72; PULSE 71; RESP 198; TEMP 98
== END 2018-09-13 14:05 | disposition home or self-care (01) ==
LOC: H.ER 09:15
DX: M54.9 Dorsalgia, unspecified (principal); M54.16 Radiculopathy, lumbar region; G89.29 Other chronic pain; I10 Essential (primary) hypertension; Z79.84 Long term (current) use of oral hypoglycemic drugs
CPT/HCPCS: 72133; 80053; 81025; 85025; 85378; 93971; 96372; 99283; J1885